=== PATIENT | female | born 1985 | race Caucasian/White ===

== ENCOUNTER 2019-12-23 09:59 | Outpatient (CLI) | payer OTHER ==
[2019-12-23 18:20] LABS: SARS-CoV-2 MS2 Positive; SARS-CoV-2 N Gene Negative; SARS-CoV-2 S Gene Negative; SARS-CoV-2 orf1ab Negative
== END 2019-12-23 10:00 | disposition home or self-care (01) ==
LOC: LABBT 09:59
PROVIDERS: ATTEND Obstetrics & Gynecology
DX: Z01.812 Encounter for preprocedural laboratory examination (principal); Z11.59 Encounter for screening for other viral diseases; N92.0 Excessive and frequent menstruation with regular cycle; R10.2 Pelvic and perineal pain; D64.9 Anemia, unspecified
CPT/HCPCS: 87635; U0003

== ENCOUNTER 2019-12-26 07:51 | Day surgery (SDC) | payer OTHER ==
[2019-12-20 10:01] VITALS: BMI 25.6
[2019-12-20 11:03] LABS: Mean Corpuscular HGB CONC 32.5 g/dL (32.0-36.0); Mean Corpuscular Hemoglobin 30.2 pg (27.0-31.0); Mean Corpuscular Volume 92.9 fL (78.0-98.0); Platelet Count 229 thou/uL (130-400); RBC Distribution Width 12.2 % (11.5-14.5); Red Blood Cell (RBC) Count 4.65 mill/uL (4.20-5.40); White Blood Cell (WBC) Count 5.3 thou/uL (4.8-10.8)
[2019-12-20 12:02] LABS: BHCG - Serum Negative (NEGATIVE); Pregs Control Background? CLEAR/WHITE (CLR/WHITE); Pregs Control Bar Appear? YES (CONTROL BAR)
[2019-12-26] MEDS ORDERED: Famotidine/PF 20 mg/2ml Vial ONE (08:32)
[2019-12-26] MEDS ORDERED: Gabapentin 300 MG CAP ONE (08:32)
[2019-12-26] MEDS ORDERED: CeleCOXIB 100 MG CAP ONE (08:32)
[2019-12-26] MEDS ORDERED: Bupivacaine PF 0.5% 30 ML VIAL ONE (08:56)
[2019-12-26] MEDS ORDERED: Lidocaine 1% w/Epinephrine 1:100K 20 ML VIAL ONE (08:56)
[2019-12-26] MEDS ORDERED: Fentanyl 250 MCG/5 ML VIAL ONE (10:18)
[2019-12-26] MEDS ORDERED: Glycopyrrolate 0.2 MG/ML 5 ML SYRINGE ONE (10:55)
[2019-12-26] MEDS ORDERED: Lidocaine 1% PF 5 ML VIAL ONE (10:55)
[2019-12-26] MEDS ORDERED: Rocuronium Bromide 10 MG/ML (10ML VIAL) ONE (10:55)
[2019-12-26] MEDS ORDERED: Succinylcholine Chloride 20 MG/ML 10 ml SYRINGE FS ONE (10:55)
[2019-12-26] MEDS ORDERED: Ondansetron PF 4 MG/2 ML Vial ONE (10:55)
[2019-12-26] MEDS ORDERED: PROPOFOL 200 MG/20 ML VIAL ONE (10:55)
[2019-12-26] MEDS ORDERED: Dexamethasone 20 MG/5 ML VIAL ONE (10:55)
[2019-12-26] MEDS ORDERED: PHENYLEPHRINE-NS 100 MCG/ML 10 ML SYRINGE ONE (10:55)
[2019-12-26] MEDS ORDERED: HYDROcodone/Acetaminophen 5/325 mg Tablet PO PRN ×2 (12:27)
[2019-12-26] MEDS ORDERED: Bisacodyl 10 MG SUPP PR PRN (12:27)
[2019-12-26] MEDS ORDERED: Zolpidem Tartrate 5 MG TAB PO PRN (12:27)
[2019-12-26] MEDS ORDERED: Morphine 4 MG/ML VIAL SLOW IVP PRN (12:27)
[2019-12-26] MEDS ORDERED: diphenhydrAMINE 25 MG CAP PO PRN (12:27)
[2019-12-26] MEDS ORDERED: Ondansetron PF 4 MG/2 ML Vial IVP PRN (12:27)
[2019-12-26] MEDS ORDERED: Promethazine HCl 25 MG/ML VIAL IM PRN ×2 (12:27→13:35)
[2019-12-26] MEDS ORDERED: Ropivacaine 0.2% 550 ML 750 ML NERVE BLCK SCH (12:30)
[2019-12-26] MEDS ORDERED: Fentanyl 100 MCG/2 ML VIAL ONE (12:57)
[2019-12-26] MEDS ORDERED: Ropivacaine HCl/PF 750 ML in Premix Bag 1 BAG NERVE BLCK SCH (13:15)
--- NOTE | 2019-12-26 13:19 | OP ---
DATE OF PROCEDURE: 12/26/2019 PREOPERATIVE DIAGNOSES: 1. Anemia with history of blood transfusion. 2. Enlarged fibroid uterus. POSTOPERATIVE DIAGNOSES: 1. Anemia with history of blood transfusion. 2. Enlarged fibroid uterus. PROCEDURE PERFORMED: Robotic-assisted total laparoscopic hysterectomy with bilateral salpingectomy. BEDSPREAD FOLDER: Abi Houston PA-C. COMPLICATIONS: None. ESTIMATED BLOOD LOSS: 50 mL. INTRAOPERATIVE FINDINGS: 1. Normal vagina and cervix. 2. Enlarged fibroid uterus. Normal-appearing fallopian tubes and ovaries bilaterally. 3. Surgical sites hemostatic. PROCEDURE IN DETAIL: The patient was taken back to the OR with IV fluids running. Once she was in the OR, general anesthesia was obtained and then the patient was placed in low dorsal lithotomy position with her arms tucked at her side. Once the patient was asleep and she was then positioned, the abdomen and vagina were prepped and draped in normal fashion for laparoscopy. Surgeons were gowned and gloved. A Roberson catheter was placed and the bladder drained approximately 300 mL of urine. A Jarrod syringe was attached to the tip of the catheter tubing for bladder manipulation during the case. An operative speculum was placed in the vagina. The anterior lip of the cervix was visualized and grasped with a single-tooth tenaculum. The uterus sounded to 11 cm. A [employer] manipulator was assembled with a 10-cm tip and a 4-cm cup and placed into the uterus and vagina in routine fashion. Next, the surgeon's gloves were changed and attention was turned to the laparoscopic portion of the case. Beginning just above the umbilicus, local anesthesia was injected underneath the skin. A 12-mm skin incision was made with a scalpel. A Veress needle was placed through the skin incision and the abdomen was insufflated without difficulty. Once the abdomen was distended, the Veress needle was removed and a trocar was placed through this incision without difficulty. The laparoscope was then placed through the trocar. The patient was placed in Trendelenburg position. The above findings were noted. Next, under direct visualization, 3 additional laparoscopic ports were placed including a right and left lower quadrant 8-mm robotic trocars and a right upper quadrant 11 mm port. Once these were placed, the robot was docked to the patient's bedside and attached to the trocars and the instruments were guided under direct visualization. Beginning on the patient's left side, the left fallopian tube was grasped and elevated. It was transected and removed from the surgical field. The ureter was identified on the patient's left side and noted to be away from the planned areas of dissection. The utero-ovarian ligament was cauterized and transected on the patient's left side, allowing the left ovary to fall away to the pelvic sidewall. The round ligament on the patient's left side was cauterized, transected, and divided into anterior and posterior leaf. The round ligament was then dissected down towards the level of the uterine artery, which was skeletonized. The anterior leaf of the broad ligament was taken down towards the level of the cervix. With the bladder naturally distended, the bladder anatomy was easily delineated from the cervix and the vesicouterine fascia was dissected, allowing the bladder to be dissected away from the planned colpotomy site. The uterine artery on the patient's left side was then cauterized and transected. Next, attention was turned to the right side, where the right fallopian tube was grasped, elevated, transected, and removed from the operative field. The right utero-ovarian ligament was cauterized and transected, allowing the right ovary to fall away to the pelvic sidewall. Prior to dissecting the ovary away from the uterus, the right ureter was noted away from the planned areas of dissection. The round ligament on the patient's right side was then identified, cauterized, and transected, further divided into anterior and posterior leaf and dissected down towards the level of the uterine artery. The bladder flap was completed on the patient's right side towards the left and the bladder was completely dissected away from the planned colpotomy site. The uterine artery on the patient's right side was cauterized and transected. Beginning posteriorly, a colpotomy was made circumferentially using the monopolar scissors. After this was completed, the uterine specimen was retracted into the vagina and remained there towards the end of the case from pneumoperitoneum. The vaginal cuff was irrigated and any areas of bleeding were controlled with Bovie cauterization. After the vaginal cuff and surgical pedicles were irrigated and suctioned dry, the vaginal cuff was reapproximated and closed with Stratafix suture in a running fashion and in a 2-layer closure. After the vaginal cuff was reapproximated, the cuff again was irrigated. A small area of bleeding in the right corner was controlled with cauterization, a layer of Dar hemostatic agent was applied over the surgical pedicles and vaginal cuff. The pressure was dropped to 4 mmHg prior to applying the Dar with no areas of bleeding noted. An ON-Q catheter tip was placed under direct visualization through the abdominal wall. The catheter was primed and laid into the pelvis. All instrument counts were correct and the instruments were removed from the abdomen as well as the trocars. The gas was released from the abdomen. The supraumbilical incision was closed at the fascial layer with Vicryl suture. All 4 skin incisions were closed with Monocryl suture and dressed with Dermabond dressing. The vagina was inspected at the end of the case with no bleeding noted. The final count was correct. There were no complications and the patient tolerated the procedure well. Job ID: [id number]
[2019-12-26] MEDS ORDERED: Ondansetron HCl/PF 4 MG/2 ML Vial IVP PRN (13:35)
[2019-12-26] MEDS ORDERED: Promethazine HCl 25 MG/ML VIAL SLOW IVP PRN (13:35)
[2019-12-26] MEDS: Sodium Chloride 0.9% 1,000 ML IV SCH ×2 (15:00→22:03)
[2019-12-26] MEDS: Simethicone Chewable 80 MG TAB PO PRN (15:40)
[2019-12-26] MEDS: Ketorolac Tromethamine 30 MG/ML VIAL IVP SCH (17:16)
[2019-12-27] MEDS: Simethicone Chewable 80 MG TAB PO PRN (01:00)
[2019-12-27] MEDS: Ketorolac Tromethamine 30 MG/ML VIAL IVP SCH (01:52)
[2019-12-27] MEDS: Sodium Chloride 0.9% 1,000 ML IV SCH (04:26)
[2019-12-27] MEDS ORDERED: Ibuprofen 800 MG TAB PO SCH (06:00)
[2019-12-27 06:55] LABS: Hemoglobin 12.9 g/dL (12.0-16.0); Mean Corpuscular HGB CONC 33.1 g/dL (32.0-36.0); Mean Corpuscular Hemoglobin 30.3 pg (27.0-31.0); Mean Corpuscular Volume 91.6 fL (78.0-98.0); Platelet Count 190 thou/uL (130-400); RBC Distribution Width 11.4 % (11.5-14.5); Red Blood Cell (RBC) Count 4.24 mill/uL (4.20-5.40)
[2019-12-27 07:46] VITALS: BP 116/58; TEMP 98.6
--- NOTE | 2019-12-27 08:45 | PDOC.EVN ---
Event Note - Event Note Event Note: POD1 Doing well sp NAHOMI SHEETS. No concerns, post op goals met. VS WNL Abd soft, NT, ND Perineum dry nonlabored breathing A/P: POD1 NAHOMI SHEETS doing well, OnQ use and post op pain med use reviewed. DC home.
[2019-12-27] MEDS ORDERED: Ferrous Sulfate 325 MG TAB PO SCH (09:00)
--- NOTE | 2019-12-28 10:07 | DIS ---
DATE OF ADMISSION: 12/26/2019 DATE OF DISCHARGE: 12/27/2019 ADMISSION DIAGNOSIS: Planned hysterectomy. DISCHARGE DIAGNOSIS: Planned hysterectomy. HOSPITAL COURSE: Ms. Sanjuanita Conde was admitted on 12/26/2019 for planned robotic-assisted total laparoscopic hysterectomy and bilateral salpingectomy. She underwent the aforementioned procedure without complication. On postoperative day #1, postop goals were met. She is ambulating, tolerating regular diet, voiding and passing gas. Her pain was controlled with oral medications and she was ready for discharge to home. She was discharged home in good condition with postoperative pain medication and On-Q pump instructions given in Turkmen. PLAN: To follow up with me in my office in 2 weeks. Job ID: [id number]
== END 2019-12-27 09:00 | disposition home or self-care (01) ==
LOC: SDC 07:51 → 3SW 14:22 → SDC 12-27 09:00
PROVIDERS: ATTEND Obstetrics & Gynecology
PROC: 0UT74ZZ Resection of Bilateral Fallopian Tubes, Percutaneous Endoscopic Approach (ICD-10-PCS; principal; 2019-12-27)
PROC: 0UT94ZZ Resection of Uterus, Percutaneous Endoscopic Approach (ICD-10-PCS; principal; 2019-12-27)
DX: D25.9 Leiomyoma of uterus, unspecified (principal); N72 Inflammatory disease of cervix uteri; N84.0 Polyp of corpus uteri; N84.1 Polyp of cervix uteri; G89.18 Other acute postprocedural pain; D64.9 Anemia, unspecified; Z79.899 Other long term (current) drug therapy; Z91.048 Other nonmedicinal substance allergy status
CPT/HCPCS: 36415; 84703; 85027; 86850; 86900; 86901; 88307; A4306; J0690; J1100; J1885; J2001; J2405; J2704; J2795; J3010; S0020; S0028